=== PATIENT | male | born 2000 | race Caucasian/White ===

== ENCOUNTER 2023-06-23 07:22 | Emergency (ER) | payer MEDICAID ==
[~2023-06-23] VITALS: Ht 177.8 cm; Wt 70.5 kg
[2023-06-23 07:33] VITALS: TEMP 98.3; O2SAT 98
[2023-06-23 09:45] VITALS: BP 116/77; PULSE 82; RESP 16
[2023-06-23] MEDS ORDERED: IBUPROFEN 600MG TABLET PO ONE (09:45)
[2023-06-23] MEDS ORDERED: DIAZEPAM 2 MG TABLET PO ONE (09:45)
[2023-06-23] MEDS ORDERED: METHOCARBAMOL 500MG TABLET PO ONE (09:45)
[2023-06-23] MEDS ORDERED: IBUP-2029 MT (09:57)
[2023-06-23] MEDS ORDERED: METH-653 MT (09:57)
== END 2023-06-23 10:58 | disposition home or self-care (01) ==
LOC: ER 07:22
DX: M43.6 Torticollis (principal); M25.511 Pain in right shoulder; M54.2 Cervicalgia
CPT/HCPCS: 99283